=== PATIENT | female | born 1980 | race Caucasian/White ===

== ENCOUNTER → 2017-06-04 | Emergency (ER) | payer OTHER ==
[~2017-06-04] VITALS: Ht 160 cm; Wt 48.5 kg
--- OUTSIDE RECORDS SUMMARY | 2017-06-04 17:47 | External Medical Summary Rpt ---
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 Name Role Phone Patricia SCHAEFER PCP [phone] Encounter [facility] [id number] Date(s): 01/18/17 - 01/19/17 [facility] [address] [place] [address]- [phone] Discharge Diagnosis: Paranoid schizophrenia Discharge Diagnosis: Adult ADHD Discharge Disposition: OP Self Care or Home Attending Physician: Filipe Henry DO-RAD Admitting Physician: Filipe Henry DO-RAD Referring Physician: Filipe Henry DO-RAD Reason for Visit PARANOID SCHIZOPHRENIA Vital Signs Most recent 1 to oldest [Reference Range]: Temperature Oral Source (01/18/17 8:43 PM) Temperature Fahrenheit Mode (01/18/17 8:43 PM) Temperature, 98.1 Deg F Fahrenheit (01/18/17 8:43 PM) [96.8-99.7 Deg F] Clinical 36.7 Deg C Temperature, (01/18/17 8:43 PM) C Peripheral 91 bpm Pulse Rate (01/18/17 8:43 PM) [60-100 bpm] Respiratory 16 Breaths/Min Rate [14-20 (01/18/17 8:43 PM) Breaths/Min] Blood 138/98 mmHg Pressure (01/18/17 8:43 PM) [90-140/60-9 0 mmHg] Oxygen 98 % Saturation (01/18/17 8:43 PM) [94-100 %] Oxygen Room air Therapy Mode (01/18/17 8:43 PM) Height Stated Source (01/18/17 8:43 PM) Height Entry [place] Format (01/18/17 8:43 PM) Height/Lengt 5 ft h, MONGOLIAN (01/18/17 8:43 PM) (ft) Height/Lengt 3 Inch h MONGOLIAN (01/18/17 8:43 PM) CLINICALHEIG 160.02 cm HT (01/18/17 8:43 PM) Weight Stated Source, ED (01/18/17 8:43 PM) [place] Body 52.02 kg Weight (01/18/17 8:43 PM) Problem List No data available for this section Allergies, Adverse Reactions, Alerts No Known Allergies Medications dextroamphetamine (Zenzedi 10 mg oral tablet)1 Tab, Oral, Two Times A Day, 20mg and 30mg throughout the day, for a total of 50mg, Refills: 0 fexofenadine (Shireen) Oral, Refills: 0 lamoTRIgine (LaMICtal 200 mg oral tablet) 1 Tab, Oral, Every Day, Refills: 0 levothyroxine (Synthroid 112 mcg (0.112 mg) oral tablet)1 Tab, Oral, Every Day, Refills: 0 traZODone (traZODone 150 mg oral tablet)0.5 Tab, Oral, once a day (at bedtime), Refills: 0 Results GENERAL CHEMISTRY Most recent 1 to oldest [Reference Range]: Sodium Level 137 mmol/L [136-146 (01/18/17 11:01 PM) mmol/L] Potassium 3.5 mmol/L Level (01/18/17 11:01 PM) [3.5-5.1 mmol/L] Chloride 101 mmol/L Level *LOW* [102-112 (01/18/17 11:01 PM) mmol/L] Carbon 29 mmol/L Dioxide (01/18/17 11:01 PM) Level [21-32 mmol/L] Anion Gap 10 [9-20] (01/18/17 11:01 PM) Glucose 114 mg/dL Level *HI* [74-106 (01/18/17 11:01 PM) mg/dL] Blood Urea 8 mg/dL Nitrogen (01/18/17 11:01 PM) [7-22 mg/dL] Creatinine 0.80 mg/dL Level (01/18/17 11:01 PM) [0.55-1.02 mg/dL] eGFR 98 mL/min/1.73m2 [>=60 (01/18/17 11:01 PM) mL/min/1.73m 2] eGFR 81 mL/min/1.73m2 NonAfrican (7/25/17 11:01 PM) [>=60 mL/min/1.73m 2] Bun/Creatini 10.0 ne (01/18/17 11:01 PM) [8.0-20.0] Calcium 8.9 mg/dL Level (01/18/17 11:01 PM) [8.5-10.1 mg/dL] HEMATOLOGY Most recent 1 to oldest [Reference Range]: WBC 5.9 K/uL [4.0-10.0 (01/18/17 11:01 PM) K/uL] RBC 4.54 Million/uL [3.93-5.22 (01/18/17 11:01 PM) Million/uL] Hgb 11.9 g/dL [11.2-15.7 (01/18/17 11:01 PM) g/dL] Hct 38.0 % [34.1-44.9 (01/18/17 11:01 PM) %] MCV 83.7 fL [79.0-94.8 (01/18/17 11:01 PM) fL] MCH 26.2 pg [25.6-32.2 (01/18/17 11:01 PM) pg] MCHC 31.3 Gram/dL [32.2-36.5 *LOW* Gram/dL] (01/18/17 11:01 PM) Platelet 416 K/uL Count *HI* [163-369 (01/18/17 11:01 PM) K/uL] MPV 10.1 fL [9.4-12.4 (01/18/17 11:01 PM) fL] RDW 13.6 % [11.6-14.4 (01/18/17 11:01 PM) %] Neut % 66.4 % [34.0-71.0 (01/18/17 11:01 PM) %] Neut # 3.93 K/uL [1.56-6.13 (01/18/17 11:01 PM) K/uL] Lymph % 26.0 % [19.3-53.1 (01/18/17 11:01 PM) %] Lymph # 1.54 x10(3)/uL [1.00-3.90 (01/18/17 11:01 PM) x10(3)/uL] [place] % 5.6 % [3.0-9.0 %] (01/18/17 11:01 PM) [place] # 0.33 K/uL [0.16-1.00 (01/18/17 11:01 PM) K/uL] Eos % 1.0 % [0.0-7.0 %] (01/18/17 11:01 PM) Eos # 0.06 x10(3)/uL [0.00-0.80 (01/18/17 11:01 PM) x10(3)/uL] Baso % 0.7 % [0.0-1.5 %] (01/18/17 11:01 PM) Baso # 0.04 x10(3)/uL [0.00-0.20 (01/18/17 11:01 PM) x10(3)/uL] Slide Review No (01/18/17 11:01 PM) IG# 0.02 x10(3)/uL [0.00-0.05 (01/18/17 11:01 PM) x10(3)/uL] IG% 0.30 % [0.00-0.60 (01/18/17 11:01 PM) %] URINALYSIS Most recent 1 to oldest [Reference Range]: Urine Type U CleanCatch (01/18/17 9:29 PM) Urine Color Yellow *NA* (01/18/17 9:29 PM) Urine Clear Appearance (01/18/17 9:29 PM) Urine 1.007 Specific (01/18/17 9:29 PM) [place] [1.005-1.030 ] Urine pH 5.5 Dipstick *LOW* [6.0-8.0] (01/18/17 9:29 PM) Urine Negative Leukocyte (01/18/17 9:29 PM) Esterase [Negative] Urine Negative Nitrite (01/18/17 9:29 PM) [Negative] Urine Negative Protein (01/18/17 9:29 PM) Dipstick [Negative] Urine Negative Glucose (01/18/17 9:29 PM) Dipstick [Negative] Urine Negative Ketones (01/18/17 9:29 PM) Dipstick [Negative] Urine 0.2 EU/dL Urobilinogen (01/18/17 9:29 PM) Dipstick Urine Negative Bilirubin (01/18/17 9:29 PM) Dipstick [Negative] Urine Blood Negative Dipstick (01/18/17 9:29 PM) [Negative] Ur 0-2 /HPF Epithelial *ABN* Cells (01/18/17 9:29 PM) TOXICOLOGY Most recent 1 to oldest [Reference Range]: UDS pH 6.0 (01/18/17 9:29 PM) UDS Amp POSITIVE [NEGATIVE] *ABN* (01/18/17 9:29 PM) UDS Sylvia NEGATIVE [NEGATIVE] (01/18/17 9:29 PM) UDS Benzo NEGATIVE [NEGATIVE] (01/18/17 9:29 PM) UDS Ede NEGATIVE [NEGATIVE] (01/18/17 9:29 PM) UDS Opi NEGATIVE [NEGATIVE] (01/18/17 9:29 PM) UDS PCP NEGATIVE [NEGATIVE] (01/18/17 9:29 PM) UDS TCA Negative (01/18/17 9:29 PM) UDS THC NEGATIVE [NEGATIVE] (01/18/17 9:29 PM) Immunizations No data available for this section Procedures No data available for this section Social History No data available for this section Assessment and Plan No data available for this section Hospital Discharge Instructions Patient EducationAttention Deficit Hyperactivity Disorder Schizophrenia
--- OUTSIDE RECORDS SUMMARY | 2017-06-04 17:47 | External Medical Summary Rpt ---
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 Name Role Phone Patricia SCHAEFER PCP [phone] Encounter [facility] [id number] Date(s): 12/17/16 - 12/17/16 [facility] [address] [place] [address]- [phone] Discharge Disposition: OP Self Care or Home Attending Physician: MOMO ADHIKARI MD-INT Admitting Physician: MOMO ADHIKARI MD-INT Referring Physician: MOMO ADHIKARI MD-INT Reason for Visit HISTORY OF FALLING Vital Signs No data available for this section Problem List No data available for this section Allergies, Adverse Reactions, Alerts No data available for this section Medications No data available for this section Results No data available for this section Immunizations No data available for this section Procedures No data available for this section Social History No data available for this section Assessment and Plan No data available for this section Hospital Discharge Instructions No data available for this section
--- OUTSIDE RECORDS SUMMARY | 2017-06-04 17:47 | External Medical Summary Rpt ---
Author Author [facility] Organization [facility] Address Unknown Phone Unavailable Care Team Providers Care Shell Fisherman Name Role Phone Patricia SCHAEFER PCP [phone] Encounter [facility] [id number] Date(s): 01/18/17 - 01/19/17 [facility] [address] [place] [address]- [phone] Discharge Diagnosis: Paranoid schizophrenia Discharge Diagnosis: Adult [...] Stated Source (01/18/17 8:43 PM) Height Entry Keith Format (01/18/17 8:43 PM) Height/Lengt 5 ft h, THAI (01/18/17 8:43 PM) (ft) Height/Lengt 3 Inch h THAI (01/18/17 8:43 PM) CLINICALHEIG 160.02 cm HT (01/18/17 8:43 PM) Weight Stated Source, ED (01/18/17 8:43 PM) [place] Body 52.02 kg Weight (01/18/17 8:43 PM) [...] 1.54 x10(3)/uL [1.00-3.90 (01/18/17 11:01 PM) x10(3)/uL] [place] % 5.6 % [3.0-9.0 %] (01/18/17 11:01 PM) [place] # 0.33 K/uL [0.16-1.00 (01/18/17 11:01 PM) [...] PM) Urine 1.007 Specific (01/18/17 9:29 PM) [place] [1.005-1.030 ] Urine pH 5.5 Dipstick *LOW* [...]
--- OUTSIDE RECORDS SUMMARY | 2017-06-04 17:47 | External Medical Summary Rpt ---
Author Author [facility] Organization [facility] Address Unknown Phone Unavailable Care Team Providers Care Board Setter Name Role Phone Patricia SCHAEFER PCP [phone] Encounter [facility] [id number] Date(s): 12/17/16 - 12/17/16 [facility] [address] [place] [address]- Discharge Disposition: OP Self Care or Home [...]
--- OUTSIDE RECORDS SUMMARY | 2017-06-04 17:48 | External Medical Summary Rpt | CCD ---
Author Author [facility] Organization [facility] Address Unknown Phone Unavailable Purpose Continuity of Care Document - through 2016
--- OUTSIDE RECORDS SUMMARY | 2017-06-04 17:48 | External Medical Summary Rpt | CCD ---
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
--- OUTSIDE RECORDS SUMMARY | 2017-06-04 17:48 | External Medical Summary Rpt | CCD ---
Demographics Preferred Language Libyan Marital Status Unknown Gnosticism Affiliation Unknown Race Unknown Ethnic Group Unknown Author Author , ROXANN SILVER Address Unknown Phone Immunization Unable to retrieve immunization data due to connection failure with Immunization Registry. Please try again later.
--- OUTSIDE RECORDS SUMMARY | 2017-06-04 17:48 | External Medical Summary Rpt | CCD ---
Demographics Preferred Language Portuguese Marital Status Unknown Yazidi Affiliation Unknown Race Unknown Ethnic Group Unknown Author Author , ROXANN SILVER Address Unknown Phone Immunization Unable to retrieve immunization data due to connection failure with Immunization Registry. Please try again later.
--- OUTSIDE RECORDS SUMMARY | 2017-06-04 17:48 | External Medical Summary Rpt | CCD ---
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
--- NOTE | 2017-06-04 17:59 | Emergency Room Report ---
See Addendum History of Present Illness Time Seen by [id number] Presenting Problem in Triage Pt arrived:Wheelchair Presenting Problem:PT ADMITS TO HARMING HERSELF EARLIER TODAY WITH A RAZOR BLADE. ADMITS TO CUTTING HER WRISTS DUE TO HEARING VOICES AND SEEING SHADOWS. 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 N Clinical Suspician of Infection? N Mental Status: 1 - Regular (Normal Baseline) Sepsis Risk:Low Sepsis Risk Have you (or family members/close friends) recently traveled outside the [place]? N If Yes, where/when: Have you had exposure to infectious disease within the past month? N TB? Other? Specify: patient noncompliant with her Abilify, and slit her wrists bilaterally an hour ago. Bleeding controlled on arrival. She previously has been admitted to [facility] in [place]. She has had psychiatric care in [place] previously. She reports longstanding hx of paranoid schizophrenia and only sees shadows in the [place] and thinks her is cheating on her when she is at home. She also has bipolar disorder. ALLERGIES Coded Allergies: No Known Allergies (06/04/17) History Medical History General CAD? No Angina: No TX: No Hypertension? No Hyperlipidemia? No CHF? No DVT? No PE? No COPD? No Asthma? No Anemia? No GERD? No Gastric ulcers? No GI Bleed? No Hernia? No Thyroid Problems? Yes Hypothyroidism? No CVA? No Seizures? No Diabetes? No Renal Insuffiency? No End Stage Renal Disease? No UTI? No Stones? No BPH? No GB Disease: No Nephritic Syndrome? No Asplenia? No Hepatitis? No Sickle Cell Disease? No Arthritis? No Migraines? No Cataracts? No Glaucoma? No MRSA? No HIV? No TB? No Anxiety? No Depression? No Cancer? No More? 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 Social History Smoking Hx Smoker: Never Smoker Tobacco: No Type N/A Alcohol Alcohol: Yes Review of Systems All Other Systems Reviewed and Negative Skin see HPI Psychiatric/Neurological see HPI Physical Exam Vital Signs Vital Signs Date Time Temp Pulse Resp B/P Pulse O2 O2 Flow FiO2 Ox Delivery Rate 06/04 1723 98.2 87 16 153/100 98 General Appearance normal appearance, WD/WN, no apparent distress Eye Exam - bilateral eye normal exam, bilateral eye PERRL, bilateral eye EOMI Ear, Nose, Throat hearing grossly normal (atraumatic) Neck normal inspection, non-tender, supple, full range of motion Respiratory Status Yes: trachea midline, chest symmetrical, non tender chest. No: respiratory distress, tender on palpation, use of accessory muscles, pain on inspiration, pain on expiration. Lung Sounds bilateral: normal breath sounds, lungs clear. Cardiovascular normal exam, regular rate/rhythm, no peripheral edema, no gallop, no JVD, no murmur, no rub, normal peripheral pulses Gastrointestinal normal bowel sounds, normal exam, non tender, soft, no organomegaly, no pulsatile mass, no guarding, no rebound Extremities normal range of motion, 3.5 cm linear laceration to palmar aspect of R wrist with no tendon exposure, no bone exposure, no FB, bleeding well controlled; has additional linear superficial lacerations, three cm each, adjacent to this laceration, as well as multiple very shallow excoriations to the left wrist, also palmar aspect, none of them frankly lacerated or gaping on the left. FROM all digits, B wrists, well perfused limbs with brisk CR, warm digits, strong radial pulses, fully sensate. Strength 5 Upper Ext (L), 5 Upper Ext (R), 5 Lower Ext (L), 5 Lower Ext (R) Neurologic alert, lone lead lineman II-XII nml as tested, normal exam, no motor/sensory deficits, oriented x 3, Nonfocal exam, no tremor, speech clear and fluent and makes good eye contact; cooperative Glascow Coma Scale Glascow Coma Scale Response Value EYE response: 4 Spontaneously 4 MOTOR response: 6 OBEYS 6 VERBAL response: 5 Oriented & Converses 5 Total 15 Mental status normal mood/affect, Patient does not appear to be actively hallucinating despite her account of paranoia one hour ago. She has clear speech , and answers questions appropriately. Skin laceration(s) (see hpi) Medical Decision Making LABS/Meds/Orders Pt receiving controlled substance in ED? No Results/Orders Laboratory Tests 06/04/171754: Sodium 134 L, Potassium 3.3 L, Chloride 94 L, Carbon Dioxide 27, BUN 7, Creatinine 1.0, Estimated Creat Clear 60, Estimated GFR (MDRD) 63, Glucose 88, Calcium 9.8, Total Bilirubin 0.6, AST 23, ALT 22, Alkaline Phosphatase 82, Total Protein 9.7 H, Albumin 5.0, Globulin 4.7 H, Albumin/Globulin Ratio 1.1, WBC Pending, RBC Pending, Hgb Pending, Hct Pending, MCV Pending, RDW Pending, Plt Count Pending, Gran % Pending, Gran # Pending, Lymphocytes % Pending, Eosinophils % Pending, Basophils % Pending, Lymphocytes # Pending, Eosinophils # Pending, Basophils # Pending, PUBS MCHC Pending, MCH Pending, Salicylates 1.4 L , Acetaminophen 0 L, Alcohols 0 06/04/171744: Opiates Screen NEGATIVE, Urine Methadone Screen NEGATIVE, Barbiturates NEGATIVE, Phencyclidine Screen NEGATIVE, Amphetamines Screen POSITIVE H, Benzodiazepines Screen NEGATIVE, Cocaine Screen POSITIVE H, Marijuana (THC) Screen NEGATIVE, Urine Color YELLOW, Urine Appearance CLOUDY, Urine pH 5.5, Ur Specific [place] 1.025, Urine Protein NEGATIVE, Urine Ketones TRACE H, Urine Blood 1+ H, Urine Nitrate NEGATIVE, Urine Bilirubin NEGATIVE, Urine Urobilinogen 0.2, Ur Leukocyte Esterase NEGATIVE, Urine RBC 3-5, Urine WBC 10-20, Ur Squamous Epith Cells 20-50 , Urine Bacteria 4+, Urine Glucose NEGATIVE Current Medication Orders Sig/Kerry Start time Last Medication Dose Route Stop Time Status Admin Bacitracin 0 .STK-MED ONE 06/04 1915 DC TP Lidocaine/Epinephrine 0 .STK-MED ONE 06/04 1813 DC .ROUTE Orders Procedure Date/time Status ELECTROCARDIOGRAM REQUEST 06/04 1747 Active CULTURE, URINE 06/04 1745 Active URINALYSIS/COMPLETE 06/04 1740 Complete SALICYLATE 06/04 1740 Complete DRUG ABUSE SCREEN (TRIAGE) 06/04 1740 Complete CBC WITH AUTO DIFF 06/04 1740 Active CHEM 12 PROFILE 06/04 1740 Complete ALCOHOL 06/04 1740 Complete Acetaminophen 06/04 1740 Complete 12 LEAD EKG-ISRAEL (INITIAL) 06/04 UNK Active Consult MD Physician Consult Consult/PCP Dr. Srivastava accepting at [facility]. Patient had suicidal gesture. Time Called 190 Reason [facility] consulted regarding psych patient with paranoid schizophrenia, noncompliant with medications Procedures Laceration/Wound Repair Laceration/Wound Repair Risks/benefits discussed with pt/guardian? Yes Tetanus status up to date Wound Location wrist Wound Length (cm) 6.5 Wound's Depth, Shape sucutaneous tissue Wound Explored clean Irrigated w/ Saline (ccs) 50 Wound Prep Hibiclens Anesthesia Lidocaine w/Epi Volume Anesthetic (ccs) 4 Wound Debrided none Wound Repaired With sutures Suture Size/Type 4:0, Ethilon Layer Closure No Total Number Sutures 9 Sterile Dressing Applied Yes (shallow lacs needed min suture) Departure Departure Time of Disposition 1919 Disposition DC/XFER from ER to [facility] Clinical Impression Primary Impression: Suicide gesture Qualifiers: Encounter type: initial encounter Qualified Code: X83.8XXA - Intentional self-harm by other specified means, initial encounter Secondary Impressions: Laceration of wrist, right Qualifiers: Encounter type: initial encounter Qualified Code: S61.511A - Laceration without foreign body of right wrist, initial encounter Multiple excoriations Condition STABLE Patient Instructions Laceration Repair Additional Instructions Transfer to [facility] to be evaluated their intake staff, by private vehicle for suicide gesture; you will need sutures removed by family doctor of choice in 7-10 days; see list provided by staff at time of transfer for local MD's accepting new patients. ED Critical Care Critical Care No at 1925
--- NOTE | 2017-06-04 17:59 | Emergency Room Report ---
See Addendum History of Present Illness Time Seen by [id number] Presenting Problem in Triage Pt arrived:Wheelchair Presenting Problem:PT ADMITS TO HARMING HERSELF EARLIER TODAY WITH A RAZOR BLADE. ADMITS TO CUTTING HER WRISTS DUE TO HEARING VOICES AND SEEING SHADOWS. PT ADMITS SHE HAS NOT BEEN MEDICATED FOR "A WHILE" HAS ISSUES WITH PARANOID SCHIZOPHRENIA AND BIPOLAR Onset of symptoms date/time:/ or onset unknown for:MEDICAL HX UNKNOWN Treatment Prior to Arrival: DIRECTOR INFORMATICS Provided by: Sepsis Risk Assessment: Temp: 98.2 B/P: 153/100 MAP: 117 Pulse: 87 Resp: 16 Recent fever? N Clinical Suspician of Infection? N Mental Status: 1 - Regular (Normal Baseline) Sepsis Risk:Low Sepsis Risk Have you (or family members/close friends) recently traveled outside the [place]? N If Yes, where/when: Have you had exposure to infectious disease within the past month? N TB? Other? Specify: patient noncompliant with her Abilify, and slit her wrists bilaterally an hour ago. Bleeding controlled on arrival. She previously has been admitted to [facility] in [place]. She has had psychiatric care in [place] previously. She reports longstanding hx of paranoid schizophrenia and only sees shadows in the [place] and thinks her is cheating on her when she is at home. She also has bipolar disorder. ALLERGIES Coded Allergies: No Known Allergies (06/04/17) History Medical History General CAD? No Angina: No CO: No Hypertension? No Hyperlipidemia? No CHF? No DVT? No PE? No COPD? No Asthma? No Anemia? No GERD? No Gastric ulcers? No GI Bleed? No Hernia? No Thyroid Problems? Yes Hypothyroidism? No CVA? No Seizures? No Diabetes? No Renal Insuffiency? No End Stage Renal Disease? No UTI? No Stones? No BPH? No GB Disease: No Nephritic Syndrome? No Asplenia? No Hepatitis? No Sickle Cell Disease? No Arthritis? No Migraines? No Cataracts? No Glaucoma? No MRSA? No HIV? No TB? No Anxiety? No Depression? No Cancer? No More? 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 X 1 [employer] Hx LMP 2 Weeks Ago Social History Smoking Hx Smoker: Never Smoker Tobacco: No Type N/A Alcohol Alcohol: Yes Review of Systems All Other Systems Reviewed and Negative Skin see HPI Psychiatric/Neurological see HPI Physical Exam Vital Signs Vital Signs Date Time Temp Pulse Resp B/P Pulse O2 O2 Flow FiO2 Ox Delivery Rate 06/04 1723 98.2 87 16 153/100 98 General Appearance normal appearance, WD/WN, no apparent distress Eye Exam - bilateral eye normal exam, bilateral eye PERRL, bilateral eye EOMI Ear, Nose, Throat hearing grossly normal (atraumatic) Neck normal inspection, non-tender, supple, full range of motion Respiratory Status Yes: trachea midline, chest symmetrical, non tender chest. No: respiratory distress, tender on palpation, use of accessory muscles, pain on inspiration, pain on expiration. Lung Sounds bilateral: normal breath sounds, lungs clear. Cardiovascular normal exam, regular rate/rhythm, no peripheral edema, no gallop, no JVD, no murmur, no rub, normal peripheral pulses Gastrointestinal normal bowel sounds, normal exam, non tender, soft, no organomegaly, no pulsatile mass, no guarding, no rebound Extremities normal range of motion, 3.5 cm linear laceration to palmar aspect of R wrist with no tendon exposure, no bone exposure, no FB, bleeding well controlled; has additional linear superficial lacerations, three cm each, adjacent to this laceration, as well as multiple very shallow excoriations to the left wrist, also palmar aspect, none of them frankly lacerated or gaping on the left. FROM all digits, B wrists, well perfused limbs with brisk CR, warm digits, strong radial pulses, fully sensate. 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 She has clear speech , and answers questions appropriately. Skin laceration(s) (see hpi) Medical Decision Making LABS/Meds/Orders Pt receiving controlled substance in ED? No Results/Orders Laboratory Tests 06/04/171754: Sodium 134 L, Potassium 3.3 L, Chloride 94 L, Carbon Dioxide 27, BUN 7, Creatinine 1.0, Estimated Creat Clear 60, Estimated GFR (MDRD) 63, Glucose 88, Calcium 9.8, Total Bilirubin 0.6, AST 23, ALT 22, Alkaline Phosphatase 82, Total Protein 9.7 H, Albumin 5.0, Globulin 4.7 H, Albumin/Globulin Ratio 1.1, WBC Pending, RBC Pending, Hgb Pending, Hct Pending, MCV Pending, RDW Pending, Plt Count Pending, Gran % Pending, Gran # Pending, Lymphocytes % Pending, Eosinophils % Pending, Basophils % Pending, Lymphocytes # Pending, Eosinophils # Pending, Basophils # Pending, PUBS MCHC Pending, MCH Pending, Salicylates 1.4 L , Acetaminophen 0 L, Alcohols 0 06/04/171744: Opiates Screen NEGATIVE, Urine Methadone Screen NEGATIVE, Barbiturates NEGATIVE, Phencyclidine Screen NEGATIVE, Amphetamines Screen POSITIVE H, Benzodiazepines Screen NEGATIVE, Cocaine Screen POSITIVE H, Marijuana (THC) Screen NEGATIVE, Urine Color YELLOW, Urine Appearance CLOUDY, Urine pH 5.5, Ur Specific [place] 1.025, Urine Protein NEGATIVE, Urine Ketones TRACE H, Urine Blood 1+ H, Urine Nitrate NEGATIVE, Urine Bilirubin NEGATIVE, Urine Urobilinogen 0.2, Ur Leukocyte Esterase NEGATIVE, Urine RBC 3-5, Urine WBC 10-20, Ur Squamous Epith Cells 20-50 , Urine Bacteria 4+, Urine Glucose NEGATIVE Current Medication Orders Sig/Kerry Start time Last Medication Dose Route Stop Time Status Admin Bacitracin 0 .STK-MED ONE 06/04 1915 DC TP Lidocaine/Epinephrine 0 .STK-MED ONE 06/04 1813 DC .ROUTE Orders Procedure Date/time Status ELECTROCARDIOGRAM REQUEST 06/04 1747 Active CULTURE, URINE 06/04 1745 Active URINALYSIS/COMPLETE 06/04 1740 Complete SALICYLATE 06/04 1740 Complete DRUG ABUSE SCREEN (TRIAGE) 06/04 1740 Complete CBC WITH AUTO DIFF 06/04 1740 Active CHEM 12 PROFILE 06/04 1740 Complete ALCOHOL 06/04 1740 Complete Acetaminophen 06/04 1740 Complete 12 LEAD EKG-ISRA[place] (INITIAL) 06/04 UNK Active Consult MD Physician Consult Consult/PCP Dr. Srivastava accepting at [facility]. Patient had suicidal gesture. Time Called 190 Reason [facility] consulted regarding psych patient with paranoid schizophrenia, noncompliant with medications Procedures Laceration/Wound Repair Laceration/Wound Repair Risks/benefits discussed with pt/guardian? Yes Tetanus status up to date Wound Location wrist Wound Length (cm) 6.5 Wound's Depth, Shape sucutaneous tissue Wound Explored clean Irrigated w/ Saline (ccs) 50 Wound Prep Hibiclens Anesthesia Lidocaine w/Epi Volume Anesthetic (ccs) 4 Wound Debrided none Wound Repaired With sutures Suture Size/Type 4:0, Ethilon Layer Closure No Total Number Sutures 9 Sterile Dressing Applied Yes (shallow lacs needed min suture) Departure Departure Time of Disposition 1919 Disposition DC/XFER from ER to [facility] Clinical Impression Primary Impression: Suicide gesture Qualifiers: Encounter type: initial encounter Qualified Code: X83.8XXA - Intentional self-harm by other specified means, initial encounter Secondary Impressions: Laceration of wrist, right Qualifiers: Encounter type: initial encounter Qualified Code: S61.511A - Laceration without foreign body of right wrist, initial encounter Multiple excoriations Condition STABLE Patient Instructions Laceration Repair Additional Instructions Transfer to [facility] to be evaluated their intake staff, by private vehicle for suicide gesture; you will need sutures removed by family doctor of choice in 7-10 days; see list provided by staff at time of transfer for local MD's accepting new patients. ED Critical Care Critical Care No at 1925
[2017-06-04 18:02] LABS: AMPHETAMINES/METAMPHETAMINES POSITIVE ng/mL (<1000)
[2017-06-04 18:05] LABS: URINE BILIRUBIN - DIPSTICK NEGATIVE (NEG); URINE BLOOD 1+ (NEG)
[2017-06-04 18:10] LABS: URINE SQUAMOUS CELLS 20-50 #/hpf (0-5)
[2017-06-04 19:26] LABS: HEMOGLOBIN 14.8 g/dL (12.2-16.2); LYMPH # 2.5 K/mm3 (0.7-4.5); LYMPH % 24.9 % (10-50.0)
[2017-06-04 20:21] VITALS: BP 150/84
== END ==
LOC: ER 17:16
PROVIDERS: Emergency Medicine
PROC: 0HQDXZZ Repair Right Lower Arm Skin, External Approach (ICD-10-PCS; principal; 2017-06-04)
DX: S61.511A Laceration without foreign body of right wrist, initial encounter (principal); X78.1XXA Intentional self-harm by knife, initial encounter; Y92.019 Unspecified place in single-family (private) house as the place of occurrence of the external cause; F20.0 Paranoid schizophrenia; F19.10 Other psychoactive substance abuse, uncomplicated